=== PATIENT | male | born 1995 | race African-American/Black ===

== ENCOUNTER 2024-06-18 23:27 | Emergency (ER) | payer MEDICAID ==
[~2024-06-18] VITALS: Ht 172.7 cm; Wt 82.0 kg
[2024-06-18 23:36] VITALS: BP 148/87; PULSE 86; RESP 16; TEMP 36.9; O2SAT 99
== END 2024-06-18 23:54 | disposition left against medical advice (07) ==
LOC: ER 23:42
DX: F10.129 Alcohol abuse with intoxication, unspecified (principal); Z53.21 Procedure and treatment not carried out due to patient leaving prior to being seen by health care provider; Y90.9 Presence of alcohol in blood, level not specified